=== PATIENT | male | born 1980 | race African-American/Black ===

== ENCOUNTER 2018-11-22 06:43 | Emergency (ER) | payer OTHER ==
[~2018-11-22] VITALS: Ht 177.8 cm; Wt 95.3 kg
[~2018-11-22 06:43] MED LIST: NOHOMEMEDICATIONS
[2018-11-22 06:57] VITALS: BP 107/60
[2018-11-22] MEDS ORDERED: IBUPROFEN 400400 M2 PO (07:10)
[2018-11-22] MEDS ORDERED: FLEXERIL PO (07:10)
[2018-11-22] MEDS ORDERED: TYLENOL EXTRA500 MG PO (07:10)
== END 2018-11-22 07:26 | disposition home or self-care (01) ==
LOC: ER 06:43
DX: M54.5 Low back pain (principal); G43.909 Migraine, unspecified, not intractable, without status migrainosus

== ENCOUNTER 2018-11-30 17:19 | Emergency (ER) | payer OTHER ==
[~2018-11-30] VITALS: Ht 167.6 cm; Wt 81.7 kg
[~2018-11-30 17:19] MED LIST changes: +FLEXERIL PO; +IBUPROFEN 400400 M2 PO; +TYLENOL EXTRA500 MG PO
[2018-11-30 17:56] LABS: URINE BILIRUBIN NEGATIVE (Negative); URINE BLOOD TRACE (Negative); URINE CLARITY CLEAR; URINE COLOR YELLOW; URINE GLUCOSE-RANDOM* NEGATIVE (Negative); URINE KETONES NEGATIVE (Negative); URINE LEUKOCYTES-REFLEX NEGATIVE (Negative); URINE NITRITE-REFLEX NEGATIVE (Negative); URINE PROTEIN (DIPSTICK) NEGATIVE (Negative); URINE SPECIFIC GRAVITY >= 1.030 (1.005-1.035); URINE UROBILINOGEN 0.2 E.U./dl (0.2-1.0)
[2018-11-30 17:57] LABS: HEMATOCRIT 44.4 % (42.0-52.0); MCH 28.8 pg (26.0-34.0); MCHC 33.8 g/dL (28.0-37.0); MCV 85.1 fL (80.0-100.0); RBC 5.22 mil/uL (4.50-6.00); WBC 5.7 thou/uL (4.0-11.0)
[2018-11-30 18:07] LABS: ANION GAP 9 mmol/L (7-16); BUN 11 mg/dL (7-18); CALCIUM 8.8 mg/dL (8.5-10.1); CHLORIDE 103 mmol/L (98-107); CO2 29 mmol/L (21-32); CREATININE 1.1 mg/dL (0.7-1.3); GLUCOSE 93 mg/dL (74-106); POTASSIUM 3.8 mmol/L (3.5-5.1); SODIUM 141 mmol/L (136-145)
[2018-11-30 18:10] LABS: SALICYLATE < 2.8 mg/dL (2.8-20.0)
[2018-11-30 18:23] LABS: AMP/METHAMP Negative (Negative); BARBITURATES Negative (Negative); BENZODIAZEPINES Negative (Negative); COCAINE Negative (Negative); METHADONE Negative (Negative); OPIATES Negative (Negative); PCP Negative (Negative)
[2018-11-30 22:45] VITALS: BP 121/69
== END 2018-11-30 22:56 | disposition home or self-care (01) ==
LOC: EDBD 17:19 → ER 17:19
PROVIDERS: Physician Assistant
DX: F23 Brief psychotic disorder (principal); G43.909 Migraine, unspecified, not intractable, without status migrainosus